=== PATIENT | male | born 1995 | race Caucasian/White ===

== ENCOUNTER 2021-05-25 09:17 | Inpatient (IN) | payer SELFPAY ==
[~2021-05-25] VITALS: Ht 180 cm; Wt 119.3 kg
[2021-05-25] MEDS ORDERED: ONDANSETRON 4 MG/2 ML (SDV) Z0FRAN IVP ONE (10:00)
[2021-05-25 10:06] LABS: BASOPHILS % (AUTO) 0 % (0-10); EOSINOPHILS % (AUTO) 0 % (0-10); HEMATOCRIT 46 % (40-54); HEMOGLOBIN 15.5 g/dL (13.3-17.7); LYMPHOCYTES # (AUTO) 1.1 10^3/uL (1.0-4.0); LYMPHOCYTES % (AUTO) 13 % (12-44); MEAN CORPUSCULAR HEMOGLOBIN 29 pg (25-34); MEAN CORPUSCULAR HGB CONC 33 g/dL (32-36); MEAN CORPUSCULAR VOLUME 87 fL (80-99); MEAN PLATELET VOLUME 10.8 fL (9.0-12.2); MONOCYTES # (AUTO) 0.2 10^3/uL (0.0-1.0); MONOCYTES % (AUTO) 2 % (0-12); NEUTROPHILS # (AUTO) 7.2 10^3/uL (1.8-7.8); NEUTROPHILS % (AUTO) 84 % (42-75); PLATELET COUNT 215 10^3/uL (130-400); WHITE BLOOD COUNT 8.5 10^3/uL (4.3-11.0)
[2021-05-25 10:09] LABS: ALBUMIN 3.8 GM/DL (3.2-4.5); POTASSIUM 3.9 MMOL/L (3.6-5.0); SMEAR SCAN COMMENT YES
[2021-05-25 10:10] LABS: CALCIUM 8.3 MG/DL (8.5-10.1)
[2021-05-25 10:11] LABS: TOTAL PROTEIN 7.4 GM/DL (6.4-8.2)
[2021-05-25 10:13] LABS: BILIRUBIN,TOTAL 0.4 MG/DL (0.1-1.0)
--- NOTE | 2021-05-25 10:14 | ED General ---
General Chief Complaint: COVID19 Suspect/Confirmed Stated Complaint: HYPOXIA Nursing Triage Note: PT TO ED BY WC FROM INFUSION CENTER WITH C/O HYPOXIA R/T COVID-19. PT WAS SCHEDULED FOR INFUSION THIS MORNING, BUT WAS UNABLE TO MAINTAIN O2 >90%. CARO BEGAN HAVING SX 05/15, TESTED POSITIVE 05/17. UPON ARRIVAL, PT O2 88% RA, PLACED ON 2L NC, INCREASED TO 4L NC TO MAINTAIN O2 92%. Source of Information: Patient Exam Limitations: No Limitations History of Present Illness Date Seen by Provider: May 25, 2021 Time Seen by Provider: 09:45 Initial Comments This 25-year-old gentleman presents to the emergency room from the monoclonal antibody infusion clinic where he was noted to have oxygen saturations in the upper 80s on room air. He cannot maintain satisfactory oxygen saturations for infusion and was therefore sent to the emergency department. On my assessment he is having difficulty keeping oxygen saturations greater than 90% on 5 L by nasal cannula. He declines to lie in the prone position stating it is too difficult to breathe prone and he is too nauseated to lie prone. He was diagnosed with COVID-19 at the [facility] walk-in clinic on May 17. He has been ill for about 10 days. He denies any health problems and takes no medications on a regular basis. He has been taking only oksx-rbb-jbbowyp medications for his current illness. He has not been vaccinated for COVID-19. He has experienced some associated nausea, vomiting and diarrhea. He has experienced significant difficulty sleeping. Allergies and Home Medications Allergies Coded Allergies: No Known Drug Allergies (Unverified , 05/25/21) Patient Home Medication List Home Medication List Reviewed: Yes Review of Systems Review of Systems Constitutional: no symptoms reported EENTM: no symptoms reported Respiratory: see HPI Cardiovascular: no symptoms reported Gastrointestinal: see HPI Genitourinary: no symptoms reported Musculoskeletal: no symptoms reported Skin: no symptoms reported Psychiatric/Neurological: See HPI Hematologic/Lymphatic: No Symptoms Reported Immunological/Allergic: no symptoms reported Past Gefwenj-Tcfvqh-Dqevok Hx Patient Social History Tobacco Use?: Yes Smokeless Tobacco Frequency: Current Everyday User Use of E-Cig and/or Vaping dev: No Substance use?: No Alcohol Use?: Yes Alcohol Frequency: Once in a while Immunizations Up To Date Influenza Vaccine Up-to-Date: No; Not Current First/Initial COVID19 Vaccinat: n/a Past Medical History Surgeries: No Respiratory: No Cardiac: No Neurological: No Genitourinary: No Gastrointestinal: No Musculoskeletal: No Endocrine: No HEENT: No Cancer: No Psychosocial: No Integumentary: No Physical Exam Vital Signs Vital Signs - First Documented Capillary Refill : Less Than 3 Seconds Height, Weight, BMI Height: '" Weight: lbs. oz. kg; 36.00 BMI Method: General Appearance: WD/WN, Mild Distress (Appears uncomfortable and mildly dyspneic), Obese HEENT: PERRL/EOMI, Normal ENT Inspection, Other (Oropharynx somewhat dry) Neck: Normal Inspection Respiratory: No Accessory Muscle Use, No Respiratory Distress, Decreased Breath Sounds, Other (Mildly dyspneic) Cardiovascular: Regular Rate, Rhythm, No Edema, No Murmur Gastrointestinal: Non Tender, Soft Extremity: Normal Inspection, No Pedal Edema Neurologic/Psychiatric: Alert, Oriented x3, No Motor/Sensory Deficits, Normal Mood/Affect, surveyor geophysical prospecting II-XII Norm as Tested Skin: Normal Color, Warm/Dry Focused Exam Lactate Level 05/25/21 07:50: Lactic Acid Level 1.57 Lactic Acid Level Laboratory Tests Test 05/25/21 07:50 Lactic Acid Level 1.57 MMOL/L (0.50-2.00) Progress/Results/Core Measures Suspected Sepsis SIRS Temperature: Pulse: 107 Respiratory Rate: 31 Laboratory Tests 05/25/21 07:50: White Blood Count 8.5 Blood Pressure 95 /59 Mean: 71 05/25/21 07:50: Lactic Acid Level 1.57 Laboratory Tests 05/25/21 07:50: Creatinine 2.02H, INR Comment 1.0, Platelet Count 215, Total Bilirubin 0.4 Results/Orders Lab Results Laboratory Tests Test 05/25/21 07:50 Range/Units White Blood Count 8.5 4.3-11.0 10^3/uL Red Blood Count 5.34 4.30-5.52 10^6/uL Hemoglobin 15.5 13.3-17.7 g/dL Hematocrit 46 40-54 % Mean Corpuscular Volume 87 80-99 fL Mean Corpuscular Hemoglobin 29 25-34 pg Mean Corpuscular Hemoglobin Concent 33 32-36 g/dL Red Cell Distribution Width 12.1 10.0-14.5 % Platelet Count 215 130-400 10^3/uL Mean Platelet Volume 10.8 9.0-12.2 fL Immature Granulocyte % (Auto) 1 % Neutrophils (%) (Auto) 84 H 42-75 % Lymphocytes (%) (Auto) 13 12-44 % Monocytes (%) (Auto) 2 0-12 % Eosinophils (%) (Auto) 0 0-10 % Basophils (%) (Auto) 0 0-10 % Neutrophils # (Auto) 7.2 1.8-7.8 10^3/uL Lymphocytes # (Auto) 1.1 1.0-4.0 10^3/uL Monocytes # (Auto) 0.2 0.0-1.0 10^3/uL Eosinophils # (Auto) 0.0 0.0-0.3 10^3/uL Basophils # (Auto) 0.0 0.0-0.1 10^3/uL Immature Granulocyte # (Auto) 0.1 0.0-0.1 10^3/uL Prothrombin Time 13.1 12.2-14.7 SEC INR Comment 1.0 0.8-1.4 Activated Partial Thromboplast Time 38 H 24-35 SEC D-Dimer 1.61 H 0.00-0.49 UG/ML Sodium Level 135 135-145 MMOL/L Potassium Level 3.9 3.6-5.0 MMOL/L Chloride Level 97 L 98-107 MMOL/L Carbon Dioxide Level 21 21-32 MMOL/L Anion Gap 17 H 5-14 MMOL/L Blood Urea Nitrogen 47 H 7-18 MG/DL Creatinine 2.02 H 0.60-1.30 MG/DL Estimat Glomerular Filtration Rate 40 BUN/Creatinine Ratio 23 Glucose Level 104 70-105 MG/DL Lactic Acid Level 1.57 0.50-2.00 MMOL/L Calcium Level 8.3 L 8.5-10.1 MG/DL Corrected Calcium 8.5 8.5-10.1 MG/DL Total Bilirubin 0.4 0.1-1.0 MG/DL Aspartate Amino Transf (AST/SGOT) 131 H 5-34 U/L Alanine Aminotransferase (ALT/SGPT) 102 H 0-55 U/L Alkaline Phosphatase 55 40-136 U/L C-Reactive Protein High Sensitivity 20.84 H 0.00-0.50 MG/DL Total Protein 7.4 6.4-8.2 GM/DL Albumin 3.8 3.2-4.5 GM/DL Procalcitonin 4.99 H <0.10 NG/ML Smear Scan YES My Orders Orders - SHELBI WHITTAKER MD Cbc With Automated Diff (05/25/21 09:55) Comprehensive Metabolic Panel (05/25/21 09:55) Blood Culture (05/25/21:55) Sputum Culture (05/25/21:55) Urinalysis (05/25/21:55) Urine Culture (05/25/21:55) Protime With Inr (05/25/21:55) Partial Thromboplastin Time (05/25/21:55) Chest 1 View, Ap/Pa Only (05/25/21:55) Ed Iv/Invasive Line Start (05/25/21 09:55) Ed Iv/Invasive Line Start (05/25/21 09:55) Vital Signs Adult Sepsis Patie Q15M (05/25/21:55) O2 (05/25/21:55) Remove Rings In Anticipation O (05/25/21:55) Lactic Acid Analyzer (05/25/21:55) Fibrin Degradation Products (05/25/21:55) Procalcitonin (Pct) (05/25/21:55) Hs C Reactive Protein (05/25/21 09:55) Ondansetron Injection (Zofran Injectio (05/25/21 10:00) Dexamethasone Injection (Decadron Inje (05/25/21 10:00) Medications Given in ED Current Medications Medications Dose Ordered Sig/Diana Route Start Time Stop Time Status Last Admin Dose Admin Dexamethasone Sodium Phosphate 6 mg ONCE ONCE IV 05/25/21 10:00 05/25/21 13:27 DC 05/25/21 10:08 6 MG Ondansetron HCl 8 mg ONCE ONCE IVP 05/25/21 10:00 05/25/21 10:01 DC 05/25/21 10:08 8 MG Vital Signs/I&O 05/25/21 05/25/21 05/25/21 05/25/21 09:20 09:20 09:20 09:20 Temp 38.8 Pulse 107 Resp 31 B/P (MAP) 95/59 (71) Pulse Ox 92 92 92 O2 Delivery Nasal Cannula Nasal Cannula Nasal Cannula Nasal Cannula O2 Flow Rate 4.00 2.00 4.00 2.00 Capillary Refill : Less Than 3 Seconds Blood Pressure Mean: 71 Progress Note : Time: 10:30 Progress Note Patient was having difficulty maintaining oxygen saturations on nasal cannula. He was changed to Vapotherm at 30 L/min and at 70%. He is stable on those settings and feels a little bit better. Zofran was given for nausea. He is receiving a liter of LR. D-dimer was elevated but he cannot receive a CT ang iogram at this time due to acute kidney injury. In lieu of this, a therapeutic dose of Lovenox will be administered in the ER. Dr. Gasca has been updated and she will provide admission orders. Dexamethasone 6 mg IV was also administered. I discussed CODE STATUS with the patient and he wishes to be a full code. He asked me to update his mother, Debra Banda, at [phone]. I provided her with an update. Diagnostic Imaging Diagonstic Imaging: Xray Plain Films/CT/US/NM/MRI: chest Comments Chest x-ray viewed by me and report reviewed. See report below: NAME: ARNULFO BANDA [facility] REC#: [id number] PT STATUS: ADM IN : 1995 PHYSICIAN: SHELBI WHITTAKER MD ADMIT DATE: 05/25/21/ICU Signed Date of Exam:05/25/21 CHEST 1 VIEW, AP/PA ONLY Indication: Sepsis, COVID positive Frontal chest dated 1049 a.m. There is no prior study for comparison. Heart and mediastinal silhouette appear unremarkable. There is extensive patchy infiltrate throughout the mid to lower lung field on both sides compatible with pneumonia. There is no pneumothorax or gross pleural fluid. IMPRESSION: Extensive bilateral infiltrates compatible with COVID pneumonia. Report was faxed to [facility] by sharon at 11:17AM. Dictated by: Dictated on workstation # [id number] Dict: 05/25/21 1114 Trans: 05/25/21 1319 SHARON [id number] Interpreted by: MARTI JOLLEY MD Electronically signed by: MARTI JOLLEY MD 05/25/21 1319 Departure Impression Primary Impression: COVID-19 Additional Impressions: Hypoxia Nausea vomiting and diarrhea Disposition: ADMITTED INPATIENT Condition: Stable Admissions Decision to Admit Reason: Admit from ER (General) Decision to Admit/Date: May 25, 2021 Time/Decision to Admit Time: 09:50 SHELBI WHITTAKER MD May 25, 2021 10:14
[2021-05-25 10:15] LABS: CREATININE SERUM 2.02 MG/DL (0.60-1.30)
[2021-05-25 10:16] LABS: FIBRIN DEGRADATION PRODUCTS 1.61 UG/ML (0.00-0.49); PROTHROMBIN TIME PATIENT 13.1 SEC (12.2-14.7)
[2021-05-25] MEDS ORDERED: ENOXAPARIN 60 MG/0.6 ML (LOVENOX) SYR SC ONE (10:30)
--- NOTE | 2021-05-25 11:18 | Diagnostic Imaging Report ---
Indication: Sepsis, COVID positive Frontal chest dated 1049 a.m. There is no prior study for comparison. Heart and mediastinal silhouette appear unremarkable. There is extensive patchy infiltrate throughout the mid to lower lung field on both sides compatible with pneumonia. There is no pneumothorax or gross pleural fluid. IMPRESSION: Extensive bilateral infiltrates compatible with COVID pneumonia. Report was faxed to [facility] Infection Control by sydney at 11:17AM. Dictated by: Dictated on workstation # [id number]
[2021-05-25] MEDS ORDERED: ONDANSETRON 4 MG/2 ML (SDV) Z0FRAN IV PRN (11:30)
[2021-05-25] MEDS ORDERED: RT-ALBUTEROL HFA 8.5 GM INHALER IH PRN (11:30)
[2021-05-25] MEDS ORDERED: ENOXAPARIN 30 MG/0.3 ML (LOVENOX) SYR SC SCH (11:30)
[2021-05-25] MEDS ORDERED: ACETAMINOPHEN 325 MG TABLET PO PRN (11:30)
--- NOTE | 2021-05-25 11:50 | History & Physical-Hospitalist ---
History of Present Illness HPI/Chief Complaint Patient is a 25-year-old male who presented to the emergency department due to hypoxia. He states that his symptoms began with fever and cough on May 15. He was tested at [facility] walk-in on 05/17 and found to be positive. He was referred to the monoclonal antibody clinic which is where he presented today and hypoxia was noted. He was sent to the emergency room for evaluation and was unable to maintain oxygen saturations greater than 90 even with 5 L of oxygen so was switched to Vapotherm. He was admitted to the ICU. He reports fevers at home up to 107 F he also reports significant nausea and diarrhea. He states he has not had anything at all to eat in the last 2 weeks. Date Seen 05/25/21 Time Seen by a Provider: 11:50 Attending Physician Jenny Jimenez MD PCP No,Local Physician Referring Physician Date of Admission May 25, 2021 at 10:13 Home Medications & Allergies Home Medications Reviewed patient Home Medication Reconciliation performed by pharmacy medication reconciliations sterile instrument technician and/or nursing. Patients Allergies have been reviewed. Allergies Allergies Coded Allergies No Known Drug Allergies (Rqvfgqzdki16/11/21) Past Fgpvpyx-Rzeefc-Fqbfdi Hx Patient Social History Tobacco Use?: No Smoking Status: Never a Smoker Smokeless type used: Chew Smokeless Tobacco Frequency: Current Everyday User Use of E-Cig and/or Vaping dev: No Substance use?: No Alcohol Use?: No Alcohol Frequency: Once in a while Pt feels they are or have been: No Immunizations Up To Date First/Initial COVID19 Vaccinat: n/a Tetanus Booster (TDap): Unknown Hepatitis A: No Hepatitis B: No Current Status Advance Directives: No Communicates: Verbally Primary Language: Swedish Preferred Spoken Language: Swedish Is interpretation needed?: No Sensory deficits: Vision impairment Implanted or Applied Medical D: None Review of Systems Constitutional: chills, fever, malaise, weakness EENTM: no symptoms reported Respiratory: cough, dyspnea on exertion, short of breath Cardiovascular: chest pain; No edema, No Hx of Intervention, No palpitations Gastrointestinal: diarrhea, loss of appetite, nausea, vomiting Genitourinary: no symptoms reported Musculoskeletal: muscle cramps Skin: no symptoms reported Psychiatric/Neurological: No Symptoms Reported Physical Exam Physical Exam Vital Signs Vital Signs - First Documented 05/25/21 10:19 FiO2 70 Capillary Refill : Less Than 3 Seconds Height, Weight, BMI Height: '" Weight: lbs. oz. kg; 36.82 BMI Method: General Appearance: No Apparent Distress, WD/WN HEENT: PERRL/EOMI, Moist Mucous Membranes; No Scleral Icterus (L), No Scleral Icterus (R) Neck: Normal Inspection, Supple Respiratory: No Accessory Muscle Use, Decreased Breath Sounds, Other (on Vapotherm) Cardiovascular: Regular Rate, Rhythm, No Murmur Gastrointestinal: Normal Bowel Sounds, Non Tender, Soft Extremity: Normal Capillary Refill, No Calf Tenderness, No Pedal Edema Neurologic/Psychiatric: Alert, Oriented x3 Skin: Normal Color, Warm/Dry Results Results/Procedures Labs Laboratory Tests 05/25/21 07:50 Patient resulted labs reviewed. Imaging: Reviewed Imaging Report [facility] [place], [place] NAME: ARNULFO ROSA [facility] REC#: [id number] PT STATUS: ADM IN : 1995 PHYSICIAN: SHELBI WHITTAKER MD ADMIT DATE: 05/25/21/ICU Signed Date of Exam:05/25/21 CHEST 1 VIEW, AP/PA ONLY Indication: Sepsis, COVID positive Frontal chest dated 1049 a.m. There is no prior study for comparison. Heart and mediastinal silhouette appear unremarkable. There is extensive patchy infiltrate throughout the mid to lower lung field on both sides compatible with pneumonia. There is no pneumothorax or gross pleural fluid. IMPRESSION: Extensive bilateral infiltrates compatible with COVID pneumonia. Report was faxed to [facility] Infection Control by sharon at 11:17AM. Dictated by: Dictated on workstation # [id number] Dict: 05/25/21 1114 Trans: 05/25/21 1319 SHARON [id number] Interpreted by: MARTI JOLLEY MD Electronically signed by: MARTI JOLLEY MD 05/25/21 1313 Assessment/Plan Admission Diagnosis Acute hypoxic respiratory failure due to COVID19 Admission Status: Inpatient Order (span 2 midnights) Reason for Inpatient Admission: see below Assessment and Plan Acute hypoxic respiratory failure due to COVID19 Elevated d-dimer Morbid Obesity nausea Diarrhea Declined Actemra for now until he can think about it longer- we discussed risks and benefits (specifically secondary bacterial infections) and EUA status Took oxygen off while I was in the room- I educated him on importance of compliance with oxygen supplementation and proning On day ~10 of symptoms Tylenol prn fever Zofran for nausea Vapotherm to keep sats >90 MAT protocol Decadron TeleICU D-dimer 1.61 but unable to get CTA due to renal function- check in AM after fluids Received therapeutic Lovenox in the ER will continue IS ordered DVT ppx: Lovenox Diagnosis/Problems Diagnosis/Problems (1) Acute respiratory failure Qualifiers: Respiratory failure complication: hypoxia Qualified Codes: J96.01 - Acute respiratory failure with hypoxia (2) COVID-19 Status: Acute (3) Nausea vomiting and diarrhea Status: Acute JENNY JIMENEZ MD May 25, 2021 11:50
[2021-05-25] MEDS: NS IV 1000 ML 1,000 ML IV SCH (11:51)
[2021-05-25] MEDS ORDERED: ENOXAPARIN 40 MG/0.4 ML (LOVENOX) SYR SC SCH (12:00)
[2021-05-25] MEDS ORDERED: NS 100 ML (IVPB) BAG IV ONE (13:30)
[2021-05-25] MEDS ORDERED: LOPERAMIDE 2 MG (IMODIUM) TABLET PO PRN ×2 (13:30→14:00)
--- NOTE | 2021-05-25 13:38 | Tele-ICU Consult ---
History of Present Illness History of Present Illness Date Seen by Provider: May 25, 2021 Time Seen by Provider: 13:38 Date of Admission Allergies and Home Medications Allergies Coded Allergies: No Known Drug Allergies (Unverified , 05/25/21) Past Medical/Social/Family Hx Patient Social History Tobacco Use?: No Smoking Status: Never a Smoker Smokeless type used: Chew Smokeless Tobacco Frequency: Current Everyday User Use of E-Cig and/or Vaping dev: No Substance use?: No Alcohol Use?: No Alcohol Frequency: Once in a while Pt stated abuse/neglect: No Immunizations Up To Date Influenza Vaccine Up-to-Date: No; Not Current First/Initial COVID19 Vaccinat: n/a Tetanus Booster (TDap): Unknown Hepatitis A: No Hepatitis B: No TB Skin Test: None Current Status Advance Directives: No Communicates: Verbally Primary Language: Tunisian Preferred Spoken Language: Tunisian Is interpretation needed?: No Sensory deficits: Vision impairment Implanted or Applied Medical D: None Review of Systems Constitutional: see HPI Sepsis Event Evaluation Height, Weight, BMI Height: '" Weight: lbs. oz. kg; 36.82 BMI Method: Exam Exam Patient acknowledged, consented, and participated in this virtual visit which was conducted using real time audio/video Vital Signs Date Time Temp Pulse Resp B/P (MAP) Pulse Ox O2 Delivery O2 Flow Rate FiO2 05/25/21 12:00 94 Vapotherm 30.00 05/25/21 12:00 38.3 05/25/21 11:47 94 Vapotherm 30.00 60 05/25/21 11:30 38.3 99 20 109/63 94 Vapotherm 30.00 60.00 05/25/21 11:15 115 17 108/63 92 Vapotherm 05/25/21 10:19 96 Vapotherm 30.00 70 05/25/21 09:20 92 Nasal Cannula 2.00 05/25/21 09:20 38.8 107 31 95/59 (71) 92 Nasal Cannula 4.00 05/25/21 09:20 92 Nasal Cannula 2.00 05/25/21 09:20 Nasal Cannula 4.00 Height & Weight Height: '" Weight: lbs. oz. kg; 36.82 BMI Method: General Appearance: Other Capillary Refill: Less Than 3 Seconds Results Lab Laboratory Tests 05/25/21 07:50 Assessment/Plan Assessment/Plan Tele-ICU Physician , consultation) Available chart/ vitals / labs / Images reviewed H&P is from ER notes Patient's information available about PMH, Shx, Fhx allergy reviewed in EMR. ROS as per chart and RN report Now in ICU, hemodynamically stable Video assessment done using teleICU camera, rest of exam as per RN Discussed with RN. Consultants: Hospital course: 05/25 - ARF - COVID PNA , VT VT 30L 60% A/P AHRF / ARDS due to severe COVID19 - VT 30L 60% - migh need Bipap soon -prone position if able - conservative fluid strategy (aim for even or negative fluid balance . but will give IVF todat with PRAVEEN / dehydration BJYE-Vkftkwoqhgf-9/COVID-19 PNA -- unvaccinated ( Symptom onset ~05/15, DX 05/17 , adnmitted 05/25 - Dexamethasone - will give higher doses IV -Cytokine release syndrome - Tocilizumab ? -Hypercoagulable state , DDIMER 1.6 on 05/25 -> lovenox ppx dose , follow D dimer Nausea and diarrhea - most likely due to Covid PRAVEEN/ARF -Likely in setting of hypovolemia and intravascular volume depletion - gentle Hydration to cont Suspected superimposed bact PNA with elev PCT and CXR -empiric abx started on 05/25 -Cx sputum pending transaminitis likely due to COVID-19. - follow Lines : peroph (Central Line Necessity Reviewed) Lo: OG: Nutrition: Analgesia: Anxiety/ delirium VTE Prophylaxis: екатерина Stress Ulcer Prophylaxis: Glycemic Control: Plans in collaboration with bedside consultants and IM MDs. Discussed with RN to reach out if any questions or concerns A total of 31 minutes of critical care time was devoted to this patient today, required to treat and/or prevent further deterioration of critical care condition ( as above ) . NEVAEH ALMODOVAR MD May 25, 2021 13:38
[2021-05-25] MEDS ORDERED: NS IV 500 ML 500 ML IV NR (14:00)
[2021-05-25] MEDS: cefTRIAXone 2,000 MG/NS 50 ML IVPB IV SCH ×2 (14:30)
[2021-05-25] MEDS ORDERED: ENOXAPARIN 100 MG/1 ML (LOVENOX) SYR SC SCH (15:00)
[2021-05-25] MEDS ORDERED: TOCILIZUMAB INJECTION (NON-FOR 800 MG in NS (IVPB) 60 ML IV ONE (15:00)
[2021-05-26] MEDS: ENOXAPARIN 300 MG/3 ML (LOVENOX) MULTI-DOSE VIAL SQ SCH ×2 (00:31→11:31)
[2021-05-26] MEDS: NS IV 1000 ML 1,000 ML IV SCH ×2 (00:32→14:11)
[2021-05-26 05:37] LABS: BASOPHILS % (AUTO) 0 % (0-10); EOSINOPHILS % (AUTO) 0 % (0-10); HEMATOCRIT 42 % (40-54); HEMOGLOBIN 14.1 g/dL (13.3-17.7); LYMPHOCYTES # (AUTO) 1.1 10^3/uL (1.0-4.0); LYMPHOCYTES % (AUTO) 22 % (12-44); MEAN CORPUSCULAR HEMOGLOBIN 29 pg (25-34); MEAN CORPUSCULAR HGB CONC 33 g/dL (32-36); MEAN CORPUSCULAR VOLUME 87 fL (80-99); MEAN PLATELET VOLUME 10.4 fL (9.0-12.2); MONOCYTES # (AUTO) 0.1 10^3/uL (0.0-1.0); MONOCYTES % (AUTO) 3 % (0-12); NEUTROPHILS # (AUTO) 3.6 10^3/uL (1.8-7.8); NEUTROPHILS % (AUTO) 74 % (42-75); PLATELET COUNT 225 10^3/uL (130-400); WHITE BLOOD COUNT 4.8 10^3/uL (4.3-11.0)
[2021-05-26 05:53] LABS: ALBUMIN 3.4 GM/DL (3.2-4.5)
[2021-05-26 05:54] LABS: CALCIUM 8.2 MG/DL (8.5-10.1)
[2021-05-26 05:56] LABS: TOTAL PROTEIN 6.7 GM/DL (6.4-8.2)
[2021-05-26 05:57] LABS: BILIRUBIN,TOTAL 0.3 MG/DL (0.1-1.0)
[2021-05-26 05:59] LABS: CREATININE SERUM 1.02 MG/DL (0.60-1.30); PHOSPHORUS 2.7 MG/DL (2.3-4.7)
[2021-05-26 06:02] LABS: MAGNESIUM 2.5 MG/DL (1.6-2.4)
[2021-05-26] MEDS: POTASSIUM CL 10MEQ/50ML IVPB 50 ML IV SCH (06:37)
[2021-05-26] MEDS: MAGNESIUM 1 GM/100 ML IVPB 100 ML IV SCH (06:37)
[2021-05-26] MEDS: KCL 20 MEQ TAB (K-DUR) PO SCH (06:38)
[2021-05-26] MEDS ORDERED: CEFTRIAXONE IV SCH (09:00)
[2021-05-26] MEDS ORDERED: dexAMETHasone 6 MG TAB (DECADRON) PO SCH (09:00)
[2021-05-26] MEDS: RT-ALBUTEROL HFA 8.5 GM INHALER IH SCH ×4 (11:11→22:22)
--- NOTE | 2021-05-26 11:23 | Tele-ICU Progress Note ---
Subjective Date Seen by a Provider: May 26, 2021 Time Seen by a Provider: 11:23 Subjective/Events-last exam He Is a 25-year-old male admitted via the emergency room due to hypoxia and found to have a Covid19 pneumonia. In view of his fever and increasing demands of oxygen admitted to the intensive care unit. Currently he is in the prone position on Vapotherm with 25 L with a 60% FiO2. Seems to be resting comfortably in prone position. Video visit made and discussed with the patient and HOSPITAL CHIEF EXECUTIVE OFFICER Sepsis Event Evaluation Height, Weight, BMI Height: '" Weight: lbs. oz. kg; 36.82 BMI Method: Focused Exam Lactate Level 05/25/21 07:50: Lactic Acid Level 1.57 Exam Exam Patient acknowledged, consented, and participated in this virtual visit which was conducted using real time audio/video Vital Signs Date Time Temp Pulse Resp B/P (MAP) Pulse Ox O2 Delivery O2 Flow Rate FiO2 05/26/21 11:12 92 Vapotherm 25.00 60 05/26/21 11:00 76 22 102/64 92 Vapotherm 25.00 60.00 05/26/21 10:00 82 28 90/64 92 Vapotherm 25.00 60.00 05/26/21 09:00 78 31 107/59 89 Vapotherm 25.00 60.00 05/26/21 08:29 93 91 60 05/26/21 08:00 82 28 107/56 88 Vapotherm 25.00 60.00 05/26/21 08:00 90 Vapotherm 25.00 60 05/26/21 07:35 36.2 Vapotherm 25.00 60.00 05/26/21 07:23 91 Vapotherm 25.00 60 05/26/21 07:19 90 Vapotherm 25.00 60 05/26/21 07:00 67 10 135/58 98 Vapotherm 30.00 60.00 05/26/21 07:00 84 05/26/21 06:16 79 30 113/73 90 Vapotherm 30.00 60.00 05/26/21 05:00 75 30 122/70 90 Vapotherm 30.00 60.00 05/26/21 04:00 82 30 98/47 89 Vapotherm 30.00 60.00 05/26/21 04:00 96 Vapotherm 25.00 60 05/26/21 03:51 90 Vapotherm 30.00 60 05/26/21 03:00 93 30 131/75 90 Vapotherm 30.00 60.00 05/26/21 02:00 83 30 97/60 92 Vapotherm 30.00 60.00 05/26/21 01:00 83 30 103/62 89 Vapotherm 30.00 60.00 05/26/21 01:00 85 05/26/21 00:00 80 30 119/86 89 Vapotherm 30.00 60.00 05/25/21 23:59 96 Vapotherm 25.00 60 05/25/21 23:00 84 33 117/70 89 Vapotherm 30.00 60.00 05/25/21 22:29 94 Vapotherm 30.00 60 05/25/21 22:00 84 26 110/73 88 Vapotherm 30.00 60.00 05/25/21 21:00 85 16 101/61 91 Vapotherm 30.00 60.00 05/25/21 20:00 96 Vapotherm 25.00 60 05/25/21 20:00 90 34 108/68 91 Vapotherm 30.00 60.00 05/25/21 19:51 36.7 05/25/21 19:00 93 19 114/60 91 Vapotherm 30.00 60.00 05/25/21 19:00 91 05/25/21 18:00 86 24 106/64 91 Vapotherm 30.00 60.00 05/25/21 17:00 87 8 118/57 89 Vapotherm 30.00 60.00 05/25/21 16:00 36.5 05/25/21 16:00 86 26 108/64 92 Vapotherm 30.00 60.00 05/25/21 16:00 94 Vapotherm 25.00 60 05/25/21 15:00 90 28 115/68 94 Vapotherm 30.00 60.00 05/25/21 14:49 93 Vapotherm 30.00 60 05/25/21 14:30 95 25 112/66 91 Vapotherm 30.00 60.00 05/25/21 14:00 94 22 109/63 93 Vapotherm 30.00 60.00 05/25/21 13:30 94 23 111/57 94 Vapotherm 30.00 60.00 05/25/21 13:00 110 05/25/21 13:00 118 05/25/21 12:30 103 18 109/65 91 Vapotherm 30.00 60.00 05/25/21 12:30 37.9 05/25/21 12:00 94 Vapotherm 30.00 05/25/21 12:00 38.3 05/25/21 11:47 94 Vapotherm 30.00 60 05/25/21 11:30 38.3 99 20 109/63 94 Vapotherm 30.00 60.00 I & O 05/26/21 07:00 Intake Total 1750 ml Output Total 2000 ml Balance -250 ml Height & Weight Height: '" Weight: lbs. oz. kg; 36.82 BMI Method: General Appearance: WD/WN, Mild Distress (Appears uncomfortable and mildly dyspneic), Obese HEENT: PERRL/EOMI, Normal ENT Inspection, Other (Oropharynx somewhat dry) Neck: Normal Inspection Respiratory: No Accessory Muscle Use, No Respiratory Distress, Decreased Breath Sounds, Other (Mildly dyspneic) Cardiovascular: Regular Rate, Rhythm, No Edema, No Murmur Capillary Refill: Less Than 3 Seconds Extremity: Normal Inspection, No Pedal Edema Neurologic/Psychiatric: Alert, Oriented x3, No Motor/Sensory Deficits, Normal Mood/Affect, room service associate II-XII Norm as Tested Skin: Normal Color, Warm/Dry Other comments PE PER ATTENDING PHYSICIAN Results Lab Laboratory Tests 05/25/21 07:50 05/26/21 05:29 Assessment/Plan Assessment/Plan 1. Acute hypoxic respiratory failure 2. SARScoronavirus2 pneumonia in a patient who is unvaccinated. 3. Acute kidney failure likely due to hypovolemia 4. Suspected superimposed bacterial pneumonia. 5. Elevated liver enzymes probably due to Covid19 pneumonia. Recommendations 1. Continue prone position as ordered 2. Continue Vapotherm and wean FiO2 as tolerated 3. Monitor BUN/creatinine and the liver enzymes. 4. IV Decadron and monitor blood sugars. 5. He received Actemra. 6. IV Rocephin for bacterial pneumonia Critical Care: Critically Ill Patient Time spent with patient (mins): 25 DAISY VALENCIA MD May 26, 2021 11:23
--- NOTE | 2021-05-26 11:33 | Progress Note - Hospitalist ---
Subjective HPI/CC On Admission Date Seen by Provider: May 26, 2021 Time Seen by Provider: 10:15 Patient is a 25-year-old male who presented to the emergency department due to hypoxia. He states that his symptoms began with fever and cough on May 15. He was tested at [facility] walk-in on 05/17 and found to be positive. He was referred to the monoclonal antibody clinic which is where he presented today and hypoxia was noted. He was sent to the emergency room for evaluation and was unable to maintain oxygen saturations greater than 90 even with 5 L of oxygen so was switched to Vapotherm. He was admitted to the ICU. He reports fevers at home up to 107 F he also reports significant nausea and diarrhea. He states he has not had anything at all to eat in the last 2 weeks. Subjective/Events-last exam He is feeling better. His breathing is better. He is not having any fevers or chills. He does not have much of an appetite. Focused Exam Lactate Level 05/25/21 07:50: Lactic Acid Level 1.57 Objective Exam Vital Signs Vital Signs Date Time Temp Pulse Resp B/P (MAP) Pulse Ox O2 Delivery O2 Flow Rate FiO2 05/26/21 11:12 92 Vapotherm 25.00 60 05/26/21 11:00 76 22 102/64 05/26/21 07:35 36.2 Capillary Refill : Less Than 3 Seconds General Appearance: No Apparent Distress, Obese, Other (proning) Respiratory: Lungs Clear, Normal Breath Sounds, No Respiratory Distress Cardiovascular: Regular Rate, Rhythm, No Edema, No Murmur Gastrointestinal: Normal Bowel Sounds, Non Tender, Soft Extremity: Normal Inspection, Non Tender, No Pedal Edema Neurologic/Psychiatric: Alert, Oriented x3, No Motor/Sensory Deficits, Normal Mood/Affect Skin: Normal Color, Warm/Dry Results/Procedures Lab Laboratory Tests 05/26/21 05:29 Patient resulted labs reviewed. Imaging: Reviewed Imaging Report Assessment/Plan Assessment and Plan Assess & Plan/Chief Complaint Acute respiratory failure due to COVID-19 Secondary bacterial pneumonia Elevated d-dimer Elevated LFTs PRAVEEN Obesity s/p Actemra Continue Decadron Continue Vapotherm, stable MAT protocol TeleICU following D-dimer improved Procal elevated Continue Rocephin DVT ppx: Lovenox Critical Care Critically Ill Patient Diagnosis/Problems Diagnosis/Problems (1) Acute respiratory failure due to COVID-19 Status: Acute (2) Secondary bacterial pneumonia Status: Acute (3) Elevated d-dimer Status: Acute (4) Obesity Status: Chronic (5) Elevated LFTs Status: Acute (6) PRAVEEN (acute kidney injury) Status: Acute GUME HADLEY MD May 26, 2021 11:33
[2021-05-26] MEDS ORDERED: RT-ALBUTEROL HFA 8.5 GM INHALER IH PRN (12:00)
[2021-05-26] MEDS: cefTRIAXone 2,000 MG/NS 50 ML IVPB IV SCH ×2 (14:11)
[2021-05-27] MEDS: RT-ALBUTEROL HFA 8.5 GM INHALER IH SCH ×6 (03:06→22:02)
[2021-05-27 05:38] LABS: BASOPHILS % (AUTO) 0 % (0-10); EOSINOPHILS % (AUTO) 0 % (0-10); HEMATOCRIT 40 % (40-54); HEMOGLOBIN 13.5 g/dL (13.3-17.7); LYMPHOCYTES # (AUTO) 1.4 10^3/uL (1.0-4.0); LYMPHOCYTES % (AUTO) 19 % (12-44); MEAN CORPUSCULAR HEMOGLOBIN 30 pg (25-34); MEAN CORPUSCULAR HGB CONC 34 g/dL (32-36); MEAN CORPUSCULAR VOLUME 87 fL (80-99); MONOCYTES # (AUTO) 0.7 10^3/uL (0.0-1.0); MONOCYTES % (AUTO) 10 % (0-12); NEUTROPHILS # (AUTO) 5.3 10^3/uL (1.8-7.8); NEUTROPHILS % (AUTO) 70 % (42-75); PLATELET COUNT 251 10^3/uL (130-400); WHITE BLOOD COUNT 7.5 10^3/uL (4.3-11.0)
[2021-05-27 05:51] LABS: ALBUMIN 3.3 GM/DL (3.2-4.5)
[2021-05-27 05:52] LABS: CALCIUM 8.3 MG/DL (8.5-10.1)
[2021-05-27] MEDS: NS IV 1000 ML 1,000 ML IV SCH (05:52)
[2021-05-27] MEDS: POTASSIUM CL 10MEQ/50ML IVPB 50 ML IV SCH (05:52)
[2021-05-27 05:53] LABS: TOTAL PROTEIN 6.3 GM/DL (6.4-8.2)
[2021-05-27] MEDS: KCL 20 MEQ TAB (K-DUR) PO SCH (05:53)
[2021-05-27 05:55] LABS: BILIRUBIN,TOTAL 0.3 MG/DL (0.1-1.0)
[2021-05-27 05:57] LABS: CREATININE SERUM 0.78 MG/DL (0.60-1.30); PHOSPHORUS 3.3 MG/DL (2.3-4.7)
[2021-05-27 06:00] LABS: MAGNESIUM 2.5 MG/DL (1.6-2.4)
[2021-05-27] MEDS: MAGNESIUM 1 GM/100 ML IVPB 100 ML IV SCH (06:05)
[2021-05-27] MEDS: guaiFENesin SYRUP 100 MG/5 ML 10 ML (ROBITUSSIN SF) PO PRN ×2 (08:40→15:56)
--- NOTE | 2021-05-27 09:02 | Tele-ICU Progress Note ---
Subjective Date Seen by a Provider: May 27, 2021 Time Seen by a Provider: 09:05 Subjective/Events-last exam Today he is feeling somewhat better. Able to sit down at the edge of the bed and able to eat breakfast. He is proning pretty good which might be helping his oxygenation. No fever present no respiratory distress present. 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 oz. kg; 36.82 BMI Method: Focused Exam Lactate Level 05/25/21 07:50: Lactic Acid Level 1.57 Exam Exam Patient acknowledged, consented, and participated in this virtual visit which was conducted using real time audio/video Vital Signs Date Time Temp Pulse Resp B/P (MAP) Pulse Ox O2 Delivery O2 Flow Rate FiO2 05/27/21 08:00 60 26 101/59 92 Vapotherm 25.00 60.00 05/27/21 07:56 35.8 05/27/21 07:02 95 Vapotherm 25.00 60 05/27/21 07:00 80 05/27/21 07:00 68 22 99/73 93 Vapotherm 25.00 60.00 05/27/21 06:00 87 31 83/72 93 Vapotherm 25.00 60.00 05/27/21 05:00 56 24 100/54 94 Vapotherm 25.00 60.00 05/27/21 04:00 90 Vapotherm 25.00 60 05/27/21 04:00 68 30 113/61 92 Vapotherm 25.00 60.00 05/27/21 03:00 71 25 130/46 92 Vapotherm 25.00 60.00 05/27/21 02:59 93 Vapotherm 25.00 60 05/27/21 02:00 90 29 122/57 95 Vapotherm 25.00 60.00 05/27/21 01:00 76 23 118/49 95 Vapotherm 25.00 60.00 05/27/21 01:00 82 05/27/21 00:00 82 23 114/36 96 Vapotherm 25.00 60.00 05/27/21 00:00 36.7 05/26/21 23:59 90 Vapotherm 25.00 60 05/26/21 23:00 74 28 119/59 92 Vapotherm 25.00 60.00 05/26/21 22:22 94 Vapotherm 25.00 60 05/26/21 22:00 71 18 136/72 95 Vapotherm 25.00 60.00 05/26/21 21:00 77 18 120/68 93 Vapotherm 25.00 60.00 05/26/21 20:00 90 Vapotherm 25.00 60 05/26/21 20:00 86 26 119/64 95 Vapotherm 25.00 60.00 05/26/21 20:00 36.9 05/26/21 19:00 100 05/26/21 19:00 87 23 130/66 92 Vapotherm 25.00 60.00 05/26/21 18:36 93 Vapotherm 25.00 60 05/26/21 18:00 71 14 138/57 97 Vapotherm 25.00 60.00 05/26/21 17:00 87 19 119/60 94 Vapotherm 25.00 60.00 05/26/21 16:38 90 Vapotherm 25.00 60 05/26/21 16:00 86 20 125/80 94 Vapotherm 25.00 60.00 05/26/21 15:00 85 30 112/38 94 Vapotherm 25.00 60.00 05/26/21 14:38 36.8 05/26/21 14:33 92 Vapotherm 25.00 60 05/26/21 14:00 85 12 107/62 91 Vapotherm 25.00 60.00 05/26/21 13:00 89 12 120/74 93 Vapotherm 25.00 60.00 05/26/21 12:55 81 05/26/21 12:20 90 Vapotherm 25.00 60 05/26/21 12:00 84 26 107/69 90 Vapotherm 25.00 60.00 05/26/21 11:12 92 Vapotherm 25.00 60 05/26/21 11:00 76 22 102/64 92 Vapotherm 25.00 60.00 05/26/21 10:00 82 28 90/64 92 Vapotherm 25.00 60.00 I & O 05/27/21 07:00 Intake Total 1810 ml Output Total 603 ml Balance 1207 ml Height & Weight Height: '" Weight: lbs. oz. kg; 36.82 BMI Method: General Appearance: WD/WN, Mild Distress (Appears uncomfortable and mildly dyspneic), Obese HEENT: PERRL/EOMI, Normal ENT Inspection, Other (Oropharynx somewhat dry) Neck: Normal Inspection Respiratory: No Accessory Muscle Use, No Respiratory Distress, Decreased Breath Sounds, Other (Mildly dyspneic) Cardiovascular: Regular Rate, Rhythm, No Edema, No Murmur Capillary Refill: Less Than 3 Seconds Extremity: Normal Inspection, No Pedal Edema Neurologic/Psychiatric: Alert, Oriented x3, No Motor/Sensory Deficits, Normal Mood/Affect, credit control manager II-XII Norm as Tested Skin: Normal Color, Warm/Dry Other comments PE PER ATTENDING. Results Lab Laboratory Tests 05/26/21 05:29 05/27/21 05:28 Assessment/Plan Assessment/Plan 1. Acute hypoxic respiratory failure 2. SARScoronavirus2 pneumonia in a patient who is unvaccinated. 3. Acute kidney failure likely due to hypovolemia IMPROVING 4. Suspected superimposed bacterial pneumonia. 5. Elevated liver enzymes probably due to Covid19 pneumonia. Recommendations 1. Continue prone position as ordered 2. Continue Vapotherm and wean FiO2 as tolerated 3. Monitor BUN/creatinine and the liver enzymes. 4. IV Decadron and monitor blood sugars. 5. He received Actemra. 6. IV Rocephin for bacterial pneumonia 7. WILL GET F/U CXR in am. Critical Care: Critically Ill Patient Time spent with patient (mins): 25 DAISY VALENCIA MD May 27, 2021 09:02
[2021-05-27] MEDS: ENOXAPARIN 40 MG/0.4 ML (LOVENOX) SYR SQ SCH (11:04)
[2021-05-27] MEDS: cefTRIAXone 2,000 MG/NS 50 ML IVPB IV SCH ×2 (14:24)
--- NOTE | 2021-05-27 19:48 | Progress Note - Hospitalist ---
Subjective HPI/CC On Admission Date Seen by Provider: May 27, 2021 Time Seen by Provider: 10:10 Patient is a 25-year-old male who presented to the emergency department due to hypoxia. He states that his symptoms began with fever and cough on May 15. He was tested at [facility] walk-in on 05/17 and found to be positive. He was referred to the monoclonal antibody clinic which is where he presented today and hypoxia was noted. He was sent to the emergency room for evaluation and was unable to maintain oxygen saturations greater than 90 even with 5 L of oxygen so was switched to Vapotherm. He was admitted to the ICU. He reports fevers at home up to 107 F he also reports significant nausea and diarrhea. He states he has not had anything at all to eat in the last 2 weeks. Subjective/Events-last exam He is feeling a little bit better today. He is not as short of breath. He still has a cough. His appetite has improved a bit. Focused Exam Lactate Level 05/25/21 07:50: Lactic Acid Level 1.57 Objective Exam Vital Signs Vital Signs Date Time Temp Pulse Resp B/P (MAP) Pulse Ox O2 Delivery O2 Flow Rate FiO2 05/27/21 18:36 90 Vapotherm 25.00 50 05/27/21 18:00 63 19 110/61 05/27/21 16:21 36.6 Capillary Refill : Less Than 3 Seconds General Appearance: No Apparent Distress, Obese Respiratory: No Respiratory Distress, Decreased Breath Sounds Cardiovascular: Regular Rate, Rhythm, No Edema, No Murmur Gastrointestinal: Normal Bowel Sounds, Non Tender, Soft Extremity: Normal Inspection, Non Tender, No Pedal Edema Neurologic/Psychiatric: Alert, Oriented x3, No Motor/Sensory Deficits, Normal Mood/Affect Skin: Normal Color, Warm/Dry Results/Procedures Lab Laboratory Tests 05/27/21 05:28 Patient resulted labs reviewed. Imaging: Reviewed Imaging Report Assessment/Plan Assessment and Plan Assess & Plan/Chief Complaint Acute respiratory failure due to COVID-19 Secondary bacterial pneumonia Elevated d-dimer Elevated LFTs Obesity s/p Actemra Continue Decadron Continue Rocephin Continue Vapotherm, wean as able MAT protocol TeleICU following DVT prophylaxis: Lovenox PRAVEEN, resolved Critical Care Critically Ill Patient Diagnosis/Problems Diagnosis/Problems (1) Acute respiratory failure due to COVID-19 Status: Acute (2) Secondary bacterial pneumonia Status: Acute (3) Elevated d-dimer Status: Acute (4) Obesity Status: Chronic (5) Elevated LFTs Status: Acute (6) PRAVEEN (acute kidney injury) Status: Acute GUME HADLEY MD May 27, 2021 19:47
[2021-05-28] MEDS: RT-ALBUTEROL HFA 8.5 GM INHALER IH SCH ×6 (03:02→21:27)
[2021-05-28 04:55] LABS: BASOPHILS % (AUTO) 0 % (0-10); EOSINOPHILS % (AUTO) 0 % (0-10); HEMATOCRIT 41 % (40-54); HEMOGLOBIN 13.4 g/dL (13.3-17.7); LYMPHOCYTES # (AUTO) 1.3 10^3/uL (1.0-4.0); LYMPHOCYTES % (AUTO) 16 % (12-44); MEAN CORPUSCULAR HEMOGLOBIN 29 pg (25-34); MEAN CORPUSCULAR HGB CONC 33 g/dL (32-36); MEAN CORPUSCULAR VOLUME 88 fL (80-99); MEAN PLATELET VOLUME 10.1 fL (9.0-12.2); MONOCYTES # (AUTO) 0.9 10^3/uL (0.0-1.0); MONOCYTES % (AUTO) 11 % (0-12); NEUTROPHILS # (AUTO) 5.7 10^3/uL (1.8-7.8); NEUTROPHILS % (AUTO) 69 % (42-75); PLATELET COUNT 293 10^3/uL (130-400); WHITE BLOOD COUNT 8.2 10^3/uL (4.3-11.0)
[2021-05-28 05:14] LABS: ALBUMIN 3.3 GM/DL (3.2-4.5)
[2021-05-28 05:16] LABS: CALCIUM 8.5 MG/DL (8.5-10.1)
[2021-05-28 05:17] LABS: TOTAL PROTEIN 6.3 GM/DL (6.4-8.2)
[2021-05-28 05:19] LABS: BILIRUBIN,TOTAL 0.5 MG/DL (0.1-1.0)
[2021-05-28 05:20] LABS: PHOSPHORUS 3.5 MG/DL (2.3-4.7)
[2021-05-28 05:21] LABS: CREATININE SERUM 0.73 MG/DL (0.60-1.30)
[2021-05-28 05:23] LABS: MAGNESIUM 2.3 MG/DL (1.6-2.4)
[2021-05-28 05:34] LABS: ABG BASE EXCESS 1.6 MMOL/L (-2.5-2.5); ABG OXYGEN SATURATION 97 % (94-100); ABG PCO2 38 MMHG (35-45); ABG PH 7.44 (7.37-7.43); ABG PO2 81 MMHG (79-93); ABG TCO2 26.7 MMOL/L (21.0-31.0)
[2021-05-28 05:35] LABS: ALLENS TEST YES-POS; INSPIRED O2 50%; PATIENT TEMP 36.4; VENTILATOR NO
[2021-05-28] MEDS: POTASSIUM CL 10MEQ/50ML IVPB 50 ML IV SCH (06:29)
[2021-05-28] MEDS: MAGNESIUM 1 GM/100 ML IVPB 100 ML IV SCH (06:30)
[2021-05-28] MEDS: KCL 20 MEQ TAB (K-DUR) PO SCH (06:30)
--- NOTE | 2021-05-28 06:53 | Diagnostic Imaging Report ---
INDICATION pneumonia Comparison made to the previous study from May 25, 2021. FINDINGS: Extensive alveolar consolidation within the lungs is not appreciably changed from the previous examination and remains compatible with a multi lobar pneumonia. Heart size is stable. There is no large effusion or pneumothorax evident. IMPRESSION: 1. No significant interval change in dense bilateral multilobar alveolar pneumonia. Dictated by: Dictated on workstation # [id number]
[2021-05-28] MEDS: guaiFENesin SYRUP 100 MG/5 ML 10 ML (ROBITUSSIN SF) PO PRN (07:56)
--- NOTE | 2021-05-28 08:15 | Tele-ICU Progress Note ---
Progress Note video sandra completed 25 y/o with Covid PN Overall doing well Sitting up in bed, comfortable Pulse: 92, O2 sat: 90% No current issuesl, but still mldly hypoxemic on O2 therapy PLAN; continued ICU observation for Covid PNA Focused Exam Height, Weight, BMI Height: '" Weight: lbs. oz. kg; 36.82 BMI Method: Labs Laboratory Tests 05/28/21 04:35 Labs Laboratory Tests 05/28/21 04:35 Results Labs Labs Laboratory Tests 05/28/21 04:35: White Blood Count 8.2, Red Blood Count 4.65, Hemoglobin 13.4, Hematocrit 41, Mean Corpuscular Volume 88, Mean Corpuscular Hemoglobin 29, Mean Corpuscular Hemoglobin Concent 33, Red Cell Distribution Width 11.9, Platelet Count 293, Mean Platelet Volume 10.1, Immature Granulocyte % (Auto) 3, Neutrophils (%) (Auto) 69, Lymphocytes (%) (Auto) 16, Monocytes (%) (Auto) 11, Eosinophils (%) (Auto) 0, Basophils (%) (Auto) 0, Neutrophils # (Auto) 5.7, Lymphocytes # (Auto) 1.3, Monocytes # (Auto) 0.9, Eosinophils # (Auto) 0.0, Basophils # (Auto) 0.0, Immature Granulocyte # (Auto) 0.2H, Sodium Level 140, Potassium Level 4.0, Chloride Level 105, Carbon Dioxide Level 21, Anion Gap 14, Blood Urea Nitrogen 16, Creatinine 0.73, Estimat Glomerular Filtration Rate 130, BUN/Creatinine Ratio 22, Glucose Level 126H, Calcium Level 8.5, Corrected Calcium 9.1, Desmond sphorus Level 3.5, Magnesium Level 2.3, Total Bilirubin 0.5, Aspartate Amino Transf (AST/SGOT) 69H, Alanine Aminotransferase (ALT/SGPT) 110H, Alkaline Phosphatase 44, Total Protein 6.3L, Albumin 3.3 05/28/21 05:20: Blood Gas Puncture Site RIGHT RADIAL, Blood Gas Patient Temperature 36.4, Arterial Blood pH 7.44H, Arterial Blood Partial Pressure CO2 38, Arterial Blood Partial Pressure O2 81, Arterial Blood HCO3 26, Arterial Blood Total CO2 26.7, Arterial Blood Oxygen Saturation 97, Arterial Blood Base Excess 1.6, Luis Test YES-POS, Blood Gas Ventilator Setting NO, Blood Gas Inspired Oxygen 50% Microbiology 05/25/21 Blood Culture - Preliminary, Resulted No growth PAVAN ECHAVARRIA MD May 28, 2021 08:15
[2021-05-28] MEDS: ENOXAPARIN 40 MG/0.4 ML (LOVENOX) SYR SQ SCH (11:57)
--- NOTE | 2021-05-28 12:01 | Progress Note - Hospitalist ---
Subjective HPI/CC On Admission Date Seen by Provider: May 28, 2021 Time Seen by Provider: 10:05 Patient is a 25-year-old male who presented to the emergency department due to hypoxia. He states that his symptoms began with fever and cough on May 15. He was tested at [facility] walk-in on 05/17 and found to be positive. He was referred to the monoclonal antibody clinic which is where he presented today and hypoxia was noted. He was sent to the emergency room for evaluation and was unable to maintain oxygen saturations greater than 90 even with 5 L of oxygen so was switched to Vapotherm. He was admitted to the ICU. He reports fevers at home up to 107 F he also reports significant nausea and diarrhea. He states he has not had anything at all to eat in the last 2 weeks. Subjective/Events-last exam He is feeling better. He is not short of breath. His cough is better. He is not having fevers. His appetite has improved. Objective Exam Vital Signs Vital Signs Date Time Temp Pulse Resp B/P (MAP) Pulse Ox O2 Delivery O2 Flow Rate FiO2 05/28/21 11:08 High Flow N/C 10.00 05/28/21 11:05 96 05/28/21 11:03 45 05/28/21 10:00 65 36 127/87 05/28/21 07:59 35.8 Capillary Refill : Less Than 3 Seconds General Appearance: No Apparent Distress, Obese Respiratory: Lungs Clear, Normal Breath Sounds, No Respiratory Distress Cardiovascular: Regular Rate, Rhythm, No Edema, No Murmur Gastrointestinal: Normal Bowel Sounds, Non Tender, Soft Extremity: Normal Inspection, Non Tender, No Pedal Edema Neurologic/Psychiatric: Alert, Oriented x3, No Motor/Sensory Deficits, Normal Mood/Affect Skin: Normal Color, Warm/Dry Results/Procedures Lab Laboratory Tests 05/28/21 04:35 Patient resulted labs reviewed. Imaging: Reviewed Imaging Report Assessment/Plan Assessment and Plan Assess & Plan/Chief Complaint Acute respiratory failure due to COVID-19 Secondary bacterial pneumonia Elevated d-dimer Elevated LFTs Obesity s/p Actemra Continue Decadron Continue Rocephin Continue Vapotherm, improving, wean as able MAT protocol Transfer to 4th floor DVT prophylaxis: Lovenox PRAVEEN, resolved Diagnosis/Problems Diagnosis/Problems (1) Acute respiratory failure due to COVID-19 Status: Acute (2) Secondary bacterial pneumonia Status: Acute (3) Elevated d-dimer Status: Acute (4) Obesity Status: Chronic (5) Elevated LFTs Status: Acute (6) PRAVEEN (acute kidney injury) Status: Acute GUEM HADLEY MD May 28, 2021 12:01
[2021-05-28] MEDS: cefTRIAXone 2,000 MG/NS 50 ML IVPB IV SCH ×2 (15:12)
[2021-05-29] MEDS: RT-ALBUTEROL HFA 8.5 GM INHALER IH SCH ×5 (02:53→19:07)
[2021-05-29 07:25] LABS: BASOPHILS % (AUTO) 0 % (0-10); EOSINOPHILS % (AUTO) 0 % (0-10); HEMATOCRIT 42 % (40-54); HEMOGLOBIN 13.9 g/dL (13.3-17.7); LYMPHOCYTES % (AUTO) 26 % (12-44); MEAN CORPUSCULAR HEMOGLOBIN 29 pg (25-34); MEAN CORPUSCULAR HGB CONC 33 g/dL (32-36); MEAN CORPUSCULAR VOLUME 88 fL (80-99); MEAN PLATELET VOLUME 9.9 fL (9.0-12.2); MONOCYTES # (AUTO) 0.7 10^3/uL (0.0-1.0); MONOCYTES % (AUTO) 9 % (0-12); NEUTROPHILS # (AUTO) 4.7 10^3/uL (1.8-7.8); NEUTROPHILS % (AUTO) 60 % (42-75); PLATELET COUNT 316 10^3/uL (130-400); WHITE BLOOD COUNT 7.9 10^3/uL (4.3-11.0)
[2021-05-29 07:39] LABS: ALBUMIN 3.3 GM/DL (3.2-4.5)
[2021-05-29 07:40] LABS: POTASSIUM 3.9 MMOL/L (3.6-5.0)
[2021-05-29 07:41] LABS: CALCIUM 8.4 MG/DL (8.5-10.1)
[2021-05-29 07:42] LABS: TOTAL PROTEIN 6.1 GM/DL (6.4-8.2)
[2021-05-29 07:44] LABS: BILIRUBIN,TOTAL 0.4 MG/DL (0.1-1.0)
[2021-05-29 07:46] LABS: CREATININE SERUM 0.73 MG/DL (0.60-1.30)
[2021-05-29] MEDS ORDERED: DM H1CAP5 PO (08:33)
[2021-05-29] MEDS ORDERED: ACET-2267 PO (08:33)
[2021-05-29] MEDS ORDERED: IBUP-2185 PO (08:33)
--- NOTE | 2021-05-29 10:40 | Progress Note - Hospitalist ---
Subjective HPI/CC On Admission Date Seen by Provider: May 29, 2021 Time Seen by Provider: 09:55 Patient is a 25-year-old male who presented to the emergency department due to hypoxia. He states that his symptoms began with fever and cough on May 15. He was tested at [facility] walk-in on 05/17 and found to be positive. He was referred to the monoclonal antibody clinic which is where he presented today and hypoxia was noted. He was sent to the emergency room for evaluation and was unable to maintain oxygen saturations greater than 90 even with 5 L of oxygen so was switched to Vapotherm. He was admitted to the ICU. He reports fevers at home up to 107 F he also reports significant nausea and diarrhea. He states he has not had anything at all to eat in the last 2 weeks. Subjective/Events-last exam He is feeling better. He is not short of breath. His cough is minimal. He is eating and drinking like usual. He has been up and moving around. Objective Exam Vital Signs Vital Signs Date Time Temp Pulse Resp B/P (MAP) Pulse Ox O2 Delivery O2 Flow Rate FiO2 05/29/21 10:10 3.00 05/29/21 09:59 95 High Flow N/C 05/29/21 08:33 36.2 77 20 115/56 05/28/21 11:03 45 Capillary Refill : Less Than 3 Seconds General Appearance: No Apparent Distress, Obese Respiratory: Lungs Clear, Normal Breath Sounds, No Respiratory Distress Cardiovascular: Regular Rate, Rhythm, No Edema, No Murmur Gastrointestinal: Normal Bowel Sounds, Non Tender, Soft Extremity: Normal Inspection, Non Tender, No Pedal Edema Neurologic/Psychiatric: Alert, Oriented x3, No Motor/Sensory Deficits, Normal Mood/Affect Skin: Normal Color, Warm/Dry Results/Procedures Lab Laboratory Tests 05/29/21 07:18 Patient resulted labs reviewed. Imaging: Reviewed Imaging Report Assessment/Plan Assessment and Plan Assess & Plan/Chief Complaint Acute respiratory failure due to COVID-19 Secondary bacterial pneumonia Elevated d-dimer Elevated LFTs Obesity s/p Actemra Continue Decadron Continue Rocephin Continue supplemental oxygen improving, wean as able Home oxygen evaluation tomorrow morning MAT protocol DVT prophylaxis: Lovenox PRAVEEN, resolved Diagnosis/Problems Diagnosis/Problems (1) Acute respiratory failure due to COVID-19 Status: Acute (2) Secondary bacterial pneumonia Status: Acute (3) Elevated d-dimer Status: Acute (4) Obesity Status: Chronic (5) Elevated LFTs Status: Acute (6) PRAVEEN (acute kidney injury) Status: Acute GUME HADLEY MD May 29, 2021 10:40
[2021-05-29] MEDS: ENOXAPARIN 40 MG/0.4 ML (LOVENOX) SYR SQ SCH (11:41)
[2021-05-29 13:43] VITALS: BP 119/70
[2021-05-29] MEDS: cefTRIAXone 2,000 MG/NS 50 ML IVPB IV SCH ×2 (14:37)
[2021-05-30 06:04] LABS: BASOPHILS # (AUTO) 0.1 10^3/uL (0.0-0.1); BASOPHILS % (AUTO) 1 % (0-10); EOSINOPHILS # (AUTO) 0.1 10^3/uL (0.0-0.3); EOSINOPHILS % (AUTO) 1 % (0-10); HEMATOCRIT 43 % (40-54); HEMOGLOBIN 14.2 g/dL (13.3-17.7); LYMPHOCYTES # (AUTO) 2.7 10^3/uL (1.0-4.0); LYMPHOCYTES % (AUTO) 24 % (12-44); MEAN CORPUSCULAR HEMOGLOBIN 29 pg (25-34); MEAN CORPUSCULAR HGB CONC 33 g/dL (32-36); MEAN CORPUSCULAR VOLUME 88 fL (80-99); MEAN PLATELET VOLUME 10.1 fL (9.0-12.2); MONOCYTES # (AUTO) 0.8 10^3/uL (0.0-1.0); MONOCYTES % (AUTO) 8 % (0-12); NEUTROPHILS # (AUTO) 6.5 10^3/uL (1.8-7.8); NEUTROPHILS % (AUTO) 59 % (42-75); PLATELET COUNT 351 10^3/uL (130-400)
[2021-05-30 06:19] LABS: ALBUMIN 3.2 GM/DL (3.2-4.5); POTASSIUM 4.1 MMOL/L (3.6-5.0)
[2021-05-30 06:21] LABS: CALCIUM 8.4 MG/DL (8.5-10.1)
[2021-05-30 06:24] LABS: BILIRUBIN,TOTAL 0.5 MG/DL (0.1-1.0)
[2021-05-30 06:25] LABS: CREATININE SERUM 0.74 MG/DL (0.60-1.30)
[2021-05-30] MEDS ORDERED: dexAMETHasone 6 MG TAB (DECADRON) PO SCH (07:00)
[2021-05-30] MEDS: RT-ALBUTEROL HFA 8.5 GM INHALER IH SCH ×2 (07:35→10:58)
== END 2021-05-30 13:10 | disposition home or self-care (01) | DRG 177 ==
LOC: ER 09:17 → EDUNIT# 09:17 → ICU 10:13 → 4TH 05-28 12:49
PROVIDERS: ADMIT Family Medicine; ATTEND Internal Medicine
PROC: 5A0945A Assistance with Respiratory Ventilation, 24-96 Consecutive Hours, High Flow/Velocity Cannula (ICD-10-PCS; principal; 2021-05-25)
DX: U07.1 COVID-19 (principal); J80 Acute respiratory distress syndrome; J15.9 Unspecified bacterial pneumonia; N17.9 Acute kidney failure, unspecified; F17.220 Nicotine dependence, chewing tobacco, uncomplicated; R19.7 Diarrhea, unspecified; E66.01 Morbid (severe) obesity due to excess calories; Z68.36 Body mass index [BMI] 36.0-36.9, adult; E86.1 Hypovolemia; R79.89 Other specified abnormal findings of blood chemistry; H54.7 Unspecified visual loss; R74.01 Elevation of levels of liver transaminase levels; Z73.0 Burn-out
CPT/HCPCS: 36415; 71045; 80053; 82805; 83605; 83735; 84100; 84145; 85025; 85379; 85610; 85730; 86141; 87040; 94640; 94760; 94761; 96372; 96374; 96375

== ENCOUNTER → 2021-05-25 | Outpatient (CLI) | payer SELFPAY ==
[~2021-05-25] MED LIST: ACET-2267 PO; DM H1CAP5 PO; IBUP-2185 PO
== END ==
LOC: INFUSION 09:06
PROVIDERS: ATTEND Nurse Practitioner Family
DX: U07.1 COVID-19 (principal)